=== PATIENT | female | born 1965 | race Caucasian/White ===

== ENCOUNTER 2016-07-13 09:46 | Observation (INO) | payer MEDICARE ==
[~2016-07-13] VITALS: Ht 170.2 cm; Wt 58.8 kg
[2016-07-13] VITALS (12 sets, daily range): BP systolic 119–146; BP diastolic 60–82; PULSE 53–79; RESP 15–18; Ht 170.2 cm; Wt 58.8 kg
[~2016-07-13 09:46] MED LIST: EPHEDrine SULFATE 50 MG/5 ML SYG ONE; GLYCOPYRROLATE 0.4 MG INJ ONE; NEOSTIGMINE 3 MG/3 ML SYRINGE ONE
[2016-07-13] MEDS ORDERED: GELATIN SIZE 100 SPONGE ONE (10:56)
[2016-07-13] MEDS ORDERED: THROMBIN 5000 UNIT VIAL ONE (10:56)
[2016-07-13] MEDS ORDERED: POLYMYXIN/BACITRACIN 1L IRRIG ONE (10:56)
[2016-07-13] MEDS ORDERED: BUPIVACAINE 0.25% (MPF) 30 ML INJ ONE (10:56)
[2016-07-13] MEDS ORDERED: BUPIVACAINE 0.25%/EPI (SDV) 30 ML INJ ONE (10:56)
[2016-07-13] MEDS ORDERED: FOLI0.4T2 PO (11:00)
[2016-07-13] MEDS ORDERED: LACTATED RINGER'S 1,000 ML IV* SCH (11:00)
[2016-07-13] MEDS ORDERED: GABA300C PO (11:00)
[2016-07-13] MEDS ORDERED: TOPI50TA5 PO (11:00)
[2016-07-13] MEDS ORDERED: HYDR-902 PO (11:00)
[2016-07-13] MEDS ORDERED: ASPI-664 PO (11:00)
[2016-07-13] MEDS ORDERED: LAMO100T PO (11:00)
[2016-07-13] MEDS ORDERED: CEFAZOLIN 2 GM/50 ML (PMX) 50 ML IVPB SCH (11:00)
[2016-07-13] MEDS ORDERED: LEFL20TA PO (11:00)
--- NOTE | 2016-07-13 11:14 | HPN ---
Date/Time of Note Date/Time of Note DATE: 07/13/16 TIME: 11:13 Interval H&P Admission Note Pt. seen H&P reviewed: No system changes DL DUMONT MD July 13, 2016 11:13
[2016-07-13] MEDS ORDERED: MIDAZOLAM 1 MG/ML 2 ML INJ ONE (11:42)
[2016-07-13] MEDS ORDERED: LIDOCAINE 2% (SDV) 5 ML INJ ONE (11:42)
[2016-07-13] MEDS ORDERED: PROPOFOL 20 ML ONE ×2 (11:42→14:05)
[2016-07-13] MEDS ORDERED: ROCURONIUM 50 MG INJ ONE (11:42)
[2016-07-13] MEDS ORDERED: SUCCINYLCHOLINE CHLORIDE 100 MG/5 ML SYG IV ONE (11:42)
[2016-07-13] MEDS ORDERED: DEXAMETHASONE 4 MG/ML 1 ML INJ ONE (12:03)
[2016-07-13] MEDS ORDERED: METOCLOPRAMIDE 10 MG INJ ONE (12:03)
[2016-07-13] MEDS ORDERED: FAMOTIDINE 20 MG INJ ONE (12:03)
[2016-07-13] MEDS ORDERED: ONDANSETRON 4 MG INJ ONE (12:03)
[2016-07-13] MEDS ORDERED: CEFAZOLIN 1 GM INJ ONE (12:03)
[2016-07-13] MEDS ORDERED: HEMOSTATIC MATRIX SYG ZFS ONE (13:48)
[2016-07-13] MEDS ORDERED: POLYMYXIN/BACITRACIN 1L IRRIG IRR ONE (13:48)
[2016-07-13] MEDS ORDERED: GELATIN SIZE 100 SPONGE TOP ONE (13:49)
[2016-07-13] MEDS ORDERED: THROMBIN 5000 UNIT VIAL ZFS ONE (13:49)
[2016-07-13] MEDS ORDERED: BETAMET NA PHOS/AC(6 MG/ML) 5ML INJ ONE (14:01)
[2016-07-13] MEDS ORDERED: DIPHENHYDRAMINE 50 MG INJ IV PRN (14:30)
[2016-07-13] MEDS ORDERED: ONDANSETRON 4 MG INJ IV PRN ×2 (14:30→15:00)
[2016-07-13] MEDS ORDERED: HYDROmorphONE (0.2 MG/ML) 10ML SYG IV PRN ×3 (14:30)
[2016-07-13] MEDS ORDERED: MEPERIDINE 25 MG INJ IV PRN (14:30)
[2016-07-13] MEDS ORDERED: PROCHLORPERAZINE 10 MG INJ IV PRN (14:30)
[2016-07-13] MEDS ORDERED: FENTAnyl 50 MCG/ML VIAL IV PRN ×3 (14:30)
[2016-07-13] MEDS ORDERED: HYDROmorphONE 2 MG/ML SYG ONE (14:33)
--- NOTE | 2016-07-13 14:38 | PDOCDIS ---
Discharge Instructions CONDITION Patient Condition: Good HOME CARE INSTRUCTIONS: Diet Instructions: Regular ACTIVITY: Activity Restrictions: Avoid heavy lifting FOLLOW UP/APPOINTMENTS Appointments 2 weeks in DL Meng MD July 13, 2016 14:38
[2016-07-13] MEDS ORDERED: HYDROCODONE/APAP (5/325) TAB PO PRN ×2 (15:00)
[2016-07-13] MEDS ORDERED: PROCHLORPERAZINE 10 MG TAB PO PRN (15:00)
[2016-07-13] MEDS ORDERED: BETAMET NA PHOS/AC(6 MG/ML) 5ML INJ IM ONE (15:05)
--- NOTE | 2016-07-13 15:12 | RADRPT ---
PROCEDURE: Intraoperative imaging of the lumbar spine with fluoroscopy. CLINICAL INDICATION: Back pain. Intraoperative. TECHNIQUE: 3 images of the lumbar spine were obtained in the operating room with an image intensif ier. No radiologist was in attendance. 10.2 seconds of fluoroscopy time was used. COMPARISON: No prior study is available for comparison. FINDINGS: For the purposes of this report, the last apparent true disc level is considered to be L5-S1. Based on this, images demonstrate posterior surgical instruments at the L2 spinous process level. IMPRESSION: 1. Intraoperative imaging of the lumbar spine. RPTAT: QQ .Abel Ricketts MD, Date Time Electronically viewed and signed by .Abel Ricketts MD, on 07/13/2016 15:12 .R/
--- NOTE | 2016-07-16 16:47 | OPR ---
Date/Time of Note Date/Time of Note DATE: 07/16/16 TIME: 16:34 Operative Report Procedure Date: July 13, 2016 Preoperative Diagnosis Spinal Stenosis, L2-L3, right Postoperative Diagnosis Spinal Stenosis, L2-L3, right Operation Performed Hemilaminectomy for spinal stenosis, L2-L3 right Surgeon: DL DUMONT MD insurance legal assistant: REEMA SLOAN MD Anesthesia: general Estimated Blood Loss: minimal Pt Condition Post Procedure: stable Disposition: PACU Operative\Procedure Findings Patient painful side identified, placed face down, prepped draped. 1 inch incision, L2-L3. Right L2-L3 facet exposed. Kristie retractor inserted. Localization films. Medial potion of facet drilled off. Ligamentum visualized. Left in place until jaquelin work completed. Ligamentum removed. Sac and nerve root visualized and adequately decompressed. Wound irrigated. Retractor removed. Vicryl 0 for fascia. 2-0 for subcutaneous. 4-0 monocryl for skin followed by dermabond. There were no complications. DL DUMONT MD July 16, 2016 16:46
--- NOTE | 2016-07-16 20:43 | OPR ---
DATE OF OPERATION: 07/13/2016 PREOPERATIVE DIAGNOSIS: Spinal stenosis, L2-L3 right. POSTOPERATIVE DIAGNOSIS: Spinal stenosis, L2-L3 right. OPERATION PERFORMED: Hemilaminectomy for spinal stenosis, L2-L3 right. SURGEON: Jase Tomas MD HYDRAULIC OIL TOOL OPERATOR: Mohamud Lopez MD ANESTHESIA: General. BLOOD LOSS: Minimal. COMPLICATIONS: No complications. CONDITION POST PROCEDURE: Stable. DISPOSITION: PACU. DESCRIPTION OF PROCEDURE: The patient was identified in the holding unit, and the painful site was marked. She was taken to the operating room and received a general endotracheal anesthetic. She was carefully positioned face down on the Skinny table. Care was taken to pad all pressure points. The L2-L3 level was marked, and marker x-ray was taken. The patient was then prepped and draped in the usual manner. A 1-inch incision was made over the L2-L3 space and taken down to the deep fascia. The paraspinal fascia was then incised, and scar tissue was then dissected laterally, exposing the lamina and the facet joint at L2-L3. A Kristie retractor was used to retract the soft tissues to the lateral part of the facet. The facet was then drilled off medially, as was the lamina down to ligamentum flavum. The ligamentum was visualized, and adequate bony decompression was then accomplished before removing the ligament. The ligamentum was then removed in several large blocks. Adequate decompression was then accomplished using Kerrison punches in all directions. The spinal sac and the nerve root were visualized and found to be adequately decompressed. There was no significant bulging off of the floor of the canal. The wound was then carefully irrigated. The retractor was removed. Vicryl 0 was used for the fascia, 2-0 was used for the subcutaneous tissue, and 4-0 Monocryl was used for the skin, followed by Dermabond. The patient tolerated the procedure well and was returned to the supine position, extubated and transferred to the recovery room in satisfactory condition, breathing spontaneously. We were advised that all counts were correct. Spinal monitoring had been done during the procedure and had improved to normal over the course of the procedure for the L2 and the L3 nerve roots. Dictated By: JASE RECINOS/NTS Conf#: [id number] DID#: [id number] [facility]
== END 2016-07-13 17:40 | disposition home or self-care (01) ==
LOC: SDS 09:46 → EDSTATUS 12:30 → MS1 14:37 → SDS 14:37 → MS1 16:05
PROVIDERS: ADMIT Specialist; ATTEND Specialist
DX: M48.06 Spinal stenosis, lumbar region (principal); M06.9 Rheumatoid arthritis, unspecified; Z88.0 Allergy status to penicillin
CPT/HCPCS: 63047; 72100; G0378; J0330; J0690; J0702; J1100; J1170; J2250; J2405; J2710; J2765; J3010; J7120